=== PATIENT | male | born 1970 | race Caucasian/White ===

== ENCOUNTER 2018-01-12 18:10 | Emergency (ER) | payer BC, SELFPAY ==
[2018-01-12 18:17] VITALS: BP 137/81; PULSE 77; RESP 18; TEMP 36.9; O2SAT 97
--- NOTE | 2018-01-12 19:36 | DI.CT.S_ITS ---
PROCEDURE: CT KIDNEY URETER BLADDER (KUB) INDICATIONS: Right flank pain for 2 days, history of kidney stones TECHNIQUE: Noncontrast 5 mm thick sections acquired from the diaphragms to the symphysis. 5 mm thick coronal and sagittal reformats were then performed. For radiation dose reduction, the following was used: automated exposure control, adjustment of mA and/or kV according to patient size. COMPARISON: None. FINDINGS: Image quality: Excellent. Lung bases: Lung bases are clear. Heart size is normal. Urinary system: Both kidneys are normal in size. 5 mm nonobstructing stone is noted in the lower pole of the right kidney. No hydronephrosis or perinephric fat stranding. Both ureters appear non-dilated throughout their expected courses. Bladder wall thickness is normal; no calcified bladder stones. Other solid organs: Liver is normal in size. Gallbladder is within normal limits. Pancreas is normal in contours. Spleen is normal in size. No adrenal nodules. Peritoneum and bowel: Unenhanced bowel loops demonstrate normal wall thickness and caliber. Scattered diverticuli noted in the sigmoid colon without evidence of diverticulitis. No free fluid or air. Nodes and vessels: No retroperitoneal or mesenteric adenopathy by size criteria. Aorta and inferior vena cava are normal in caliber. Abdominal wall: No ventral hernias. Pelvis: No free pelvic fluid. No inguinal hernias or adenopathy. Bones: No suspicious bony lesions. Chronic appearing L4 compression fracture is noted which results in 50% loss of normal vertebral body height. There is narrowing of the spinal canal related to the L4 compression deformity. No acute vertebral body compression fractures. Spine degenerative disease and facet arthropathy noted. IMPRESSION: 1. 5 mm nonobstructing right renal stone. 2. No hydronephrosis. 3. The appendix is normal. 4. Sigmoid colon diverticulosis without evidence of diverticulitis. 5. Chronic appearing L4 compression fracture. Dictated by: Didi Parks MD, PhD on 01/12/2018 at 20:15 Approved by: Didi Parks MD, PhD on 01/12/2018 at 20:19
[2018-01-12 19:55] LABS: Bacteria Urine None Seen; WBC Urine None Seen (0-5/HPF)
[2018-01-12 20:03] LABS: Culture Indicated Urine Cult Not Indicated; RBC Urine 30-100/HPF (0-5/HPF)
[2018-01-12] MEDS: SODIUM CHLORIDE 0.9% 500 ML 1000 ML IV (20:11)
[2018-01-12 20:16] LABS: Add Manual Diff / Slide Review NO; Basophils Percent Auto 0.8 % (0-2); Eosinophils Percent Auto 4.4 % (2-4); Hematocrit 45.2 % (41-53); Hemoglobin 15.3 g/dL (13.5-17.5); Lymphocytes Percent Auto 34.2 % (25-40); Mean Corpuscular HGB Conc 33.8 % (30-36); Mean Corpuscular Hemoglobin 29.6 PG (26-34); Mean Corpuscular Volume 87.5 fL (80-100); Monocytes Percent Auto 11.2 % (3-14); Neutrophils Absolute Auto 4300 /uL (3000-5900); Neutrophils Percent Auto 49.4 % (50-75); Platelet Count 322 X10^3/uL (150-400); Red Blood Cell Count 5.16 X10^6/uL (4.5-5.9); Red Cell Distribution Width 13.3 % (11.6-14.8); White Blood Cell Count 8.8 X10^3/uL (4.5-11.0)
[2018-01-12 20:33] LABS: Alanine Aminotransferase 56 IU/L (21-72); Albumin 4.2 g/dL (3.5-5.0); Albumin Globulin Ratio 1.3 (1.0-2.8); Alkaline Phosphatase 57 U/L (38-126); Aspartate Aminotransferase 46 IU/L (17-59); BUN Creatinine Ratio 21.1 (6-22); Bilirubin Total 0.5 mg/dL (0.2-1.3); Blood Urea Nitrogen 19 mg/dL (9-20); Calcium 9.5 mg/dL (8.4-10.2); Carbon Dioxide 23 mmol/L (22-32); Chloride 106 mmol/L (98-107); Estimated Glomerular Filt Rate > 60.0 mL/min (>60); Globulin 3.3 g/dL (1.7-4.1); Glucose 93 mg/dL (70-100); HEMOLYSIS < 15 (0-50); Potassium 3.9 mmol/L (3.4-5.1); Sodium 143 mmol/L (137-145); Total Protein 7.5 g/dL (6.3-8.2)
[2018-01-12 20:36] VITALS: BP 128/83; PULSE 71; RESP 17; O2SAT 100
--- NOTE | 2018-01-12 21:06 | ED_ITS ---
HPI - Male Genitourinary <ARBEN Pino - Last Filed: 01/12/18 22:15> General Chief complaint: Urogenital-Male Stated complaint: KIDNEY STONES Time Seen by Provider: 01/12/18 19:20 History of Present Illness HPI Narrative: 47-year-old male with history of prior kidney stones here for complaint of right flank pain over the past several days. He states that he has had worsening pain over the past day and a half. He denies any urinary pain. He denies any fevers or chills. No nausea or vomiting. No abdominal pain. Last bowel movement was earlier today and was unremarkable. He denies any blood in his urine. Pain is localized to the right flank area no other concerns or complaints. MD Complaint: other Review of Systems <ARBEN Pino - Last Filed: 01/12/18 22:15> Constitutional Denies chills, Denies fever(s), Denies lethargy and Denies weakness Eyes Denies change in vision, Denies eye discharge, Denies irritation and Denies loss of vision ENT Ears, Nose, Mouth, and Throat: Denies change in voice, Denies neck pain and Denies sore throat Cardiovascular Denies chest pain, Denies irregular heart rhythm, Denies lightheadedness, Denies palpitations, Denies dyspnea, Denies dyspnea on exertion and Denies orthopnea Respiratory Denies cough, Denies dyspnea, Denies dyspnea on exertion and Denies wheezing Gastrointestinal Gastrointestinal: Denies abdominal pain, Denies change in bowel habits, Denies diarrhea, Denies nausea and Denies vomiting Genitourinary Reports flank pain Musculoskeletal Denies neck pain Integumentary/Breasts Denies pruritus, Denies erythema, Denies rash and Denies wounds Neurologic Denies confusion, Denies loss of vision and Denies weakness Psychiatric Denies anxiety, Denies confusion, Denies depression, Denies homicidal ideation and Denies suicidal ideation Endocrine Denies palpitations Hematologic/Lymphatic Denies easy bruising Allergic/Immunologic Denies wheezing Exam <ARBEN Pino - Last Filed: 01/12/18 22:15> Initial Vital Signs Initial Vital Signs: Vital Signs Temperature 98.5 F 01/12/18 18:17 Pulse Rate 77 01/12/18 18:17 Respiratory Rate 18 01/12/18 18:17 Blood Pressure 137/81 H 07/05/18 18:17 Pulse Oximetry 97 01/12/18 18:17 Const General: cooperative and well developed Nutritional Appearance: well nourished Orientation: alert, awake, oriented x3 and not confused [facility] Mouth: oral mucosae normal and moist mucous membranes Eyes Conjunctivae: conjunctivae normal Sclera: sclerae normal Pupils: PERRL EOM: EOM intact bilaterally Resp Effort & Inspection: normal respiratory effort, able to speak in complete sentences, no respiratory distress and no use of accessory muscles Auscultation: clear to auscultation bilaterally, no rales, no rhonchi and no wheezes Cardio Rate: regular rate Rhythm: regular rhythm Heart Sounds: no click, no gallops, no murmurs and no rubs GI Inspection: non-distended Palpation: soft, no hepatosplenomegaly, No guarding, No pulsatile mass and No tender Auscultation: normal bowel sounds Other: Right flank pain General: No CVA tenderness Other: Right flank pain Neuro General: alert, oriented x3, gait normal and no focal motor deficits Speech: speech normal <Oleg Jones MD - Last Filed: 01/13/18 05:11> Initial Vital Signs Initial Vital Signs: Vital Signs Temperature 98.5 F 01/12/18 18:17 Pulse Rate 77 01/12/18 18:17 Respiratory Rate 18 01/12/18 18:17 Blood Pressure 137/81 H 01/12/18 18:17 Pulse Oximetry 97 01/12/18 18:17 Course <ARBEN Pino - Last Filed: 01/12/18 22:15> Orders Ordered: Discontinued Medications Sodium Chloride (Normal Saline 0.9%) 500 mls @ 1,000 mls/hr IV BOLUS ONE Stop: 01/12/18 20:05 Last Infusion: 01/12/18 21:05 Dose: 0 mls/hr Admin: 01/12/18 20:11 Dose: 1,000 mls/hr Vital Signs - 8 hr 01/12/18 21:22 Pulse Rate 76 Respiratory Rate 15 Blood Pressure 140/91 H Pulse Oximetry 95 <Oleg Jones MD - Last Filed: 01/13/18 05:11> Orders Ordered: Discontinued Medications Sodium Chloride (Normal Saline 0.9%) 500 mls @ 1,000 mls/hr IV BOLUS ONE Stop: 01/12/18 20:05 Last Infusion: 01/12/18 21:05 Dose: 0 mls/hr Admin: 01/12/18 20:11 Dose: 1,000 mls/hr Vital Signs - 8 hr 01/12/18 21:22 Pulse Rate 76 Respiratory Rate 15 Blood Pressure 140/91 H Pulse Oximetry 95 MDM - Male Genitourinary <ARBEN Pino - Last Filed: 01/12/18 22:15> Lab Data Result diagrams: 01/12/18 20:00 01/12/18 20:00 Lab Results 01/12/18 01/12/18 01/12/18 Range/Units 19:25 20:00 20:00 WBC 8.8 (4.5-11.0) X10^3/uL RBC 5.16 (4.5-5.9) X10^6/uL Hgb 15.3 (13.5-17.5) g/dL Hct 45.2 (41-53) % MCV 87.5 (80-100) fL MCH 29.6 (26-34) PG MCHC 33.8 (30-36) % RDW 13.3 (11.6-14.8) % Plt Count 322 (150-400) X10^3/uL Neut % (Auto) 49.4 L (50-75) % Lymph % (Auto) 34.2 (25-40) % [place] % (Auto) 11.2 (3-14) % Eos % (Auto) 4.4 H (2-4) % Baso % (Auto) 0.8 (0-2) % Neut # (Auto) 4300 (4372-2004) /uL Sodium 143 (137-145) mmol/L Potassium 3.9 (3.4-5.1) mmol/L Chloride 106 (98-107) mmol/L Carbon Dioxide 23 (22-32) mmol/L BUN 19 (9-20) mg/dL Creatinine 0.90 (0.66-1.25) mg/dL Estimated GFR > 60.0 (>60) mL/min BUN/Creatinine Ratio 21.1 (6-22) Glucose 93 (70-100) mg/dL Calcium 9.5 (8.4-10.2) mg/dL Total Bilirubin 0.5 (0.2-1.3) mg/dL AST 46 (17-59) IU/L ALT 56 (21-72) IU/L Alkaline Phosphatase 57 (38-126) U/L Total Protein 7.5 (6.3-8.2) g/dL Albumin 4.2 (3.5-5.0) g/dL Globulin 3.3 (1.7-4.1) g/dL Albumin/Globulin Ratio 1.3 (1.0-2.8) Urine RBC 30-100/hpf H (0-5/HPF) Urine WBC None seen (0-5/HPF) Urine Bacteria None seen (None) Ur Culture Indicated? Cult not indicated Micro UA Comment Not Reportable Imaging Data kub ct: Radiologist's impression: PROCEDURE: CT KIDNEY URETER BLADDER (KUB) INDICATIONS: Right flank pain for 2 days, history of kidney stones TECHNIQUE: Noncontrast 5 mm thick sections acquired from the diaphragms to the symphysis. 5 mm thick coronal and sagittal reformats were then performed. For radiation dose reduction, the following was used: automated exposure control, adjustment of mA and/or kV according to patient size. COMPARISON: None. FINDINGS: Image quality: Excellent. Lung bases: Lung bases are clear. Heart size is normal. Urinary system: Both kidneys are normal in size. 5 mm nonobstructing stone is noted in the lower pole of the right kidney. No hydronephrosis or perinephric fat stranding. Both ureters appear non-dilated throughout their expected courses. Bladder wall thickness is normal; no calcified bladder stones. Other solid organs: Liver is normal in size. Gallbladder is within normal limits. Pancreas is normal in contours. Spleen is normal in size. No adrenal nodules. Peritoneum and bowel: Unenhanced bowel loops demonstrate normal wall thickness and caliber. Scattered diverticuli noted in the sigmoid colon without evidence of diverticulitis. No free fluid or air. Nodes and vessels: No retroperitoneal or mesenteric adenopathy by size criteria. Aorta and inferior vena cava are normal in caliber. Abdominal wall: No ventral hernias. Pelvis: No free pelvic fluid. No inguinal hernias or adenopathy. Bones: No suspicious bony lesions. Chronic appearing L4 compression fracture is noted which results in 50% loss of normal vertebral body height. There is narrowing of the spinal canal related to the L4 compression deformity. No acute vertebral body compression fractures. Spine degenerative disease and facet arthropathy noted. IMPRESSION: 1. 5 mm nonobstructing right renal stone. 2. No hydronephrosis. 3. The appendix is normal. 4. Sigmoid colon diverticulosis without evidence of diverticulitis. 5. Chronic appearing L4 compression fracture. Dictated by: Didi Parks MD, PhD on 01/12/2018 at 20:15 Approved by: Didi Parks MD, PhD on 01/12/2018 at 20:19 [facility] Narrative Medical decision making narrative: CBC and Chem panel and were unremarkable. Urinalysis was positive for red blood cells with no signs of urinary infection. KUB CT was obtained and was negative for any acute stones. No hydronephrosis. No hydroureter. There is a 5 mm stone to the right kidney that is non passing. Due to history and right flank pain and blood in urine suspicious for having already passed a kidney stone. Differential of lumbar pain due to muscle strain and idiopathic hematuria. Will have patient follow up with primary care provider next week for re-evaluation. [id number] Tylenol or Motrin as needed for any discomfort. Return emergency room for any worsening symptoms. <Oleg Jones MD - Last Filed: 01/13/18 05:11> Lab Data Lab Results 01/12/18 01/12/18 01/12/18 Range/Units 19:25 20:00 20:00 WBC 8.8 (4.5-11.0) X10^3/uL RBC 5.16 (4.5-5.9) X10^6/uL Hgb 15.3 (13.5-17.5) g/dL Hct 45.2 (41-53) % MCV 87.5 (80-100) fL MCH 29.6 (26-34) PG MCHC 33.8 (30-36) % RDW 13.3 (11.6-14.8) % Plt Count 322 (150-400) X10^3/uL Neut % (Auto) 49.4 L (50-75) % Lymph % (Auto) 34.2 (25-40) % [place] % (Auto) 11.2 (3-14) % Eos % (Auto) 4.4 H (2-4) % Baso % (Auto) 0.8 (0-2) % Neut # (Auto) 4300 (8431-3230) /uL Sodium 143 (137-145) mmol/L Potassium 3.9 (3.4-5.1) mmol/L Chloride 106 (98-107) mmol/L Carbon Dioxide 23 (22-32) mmol/L BUN 19 (9-20) mg/dL Creatinine 0.90 (0.66-1.25) mg/dL Estimated GFR > 60.0 (>60) mL/min BUN/Creatinine Ratio 21.1 (6-22) Glucose 93 (70-100) mg/dL Calcium 9.5 (8.4-10.2) mg/dL Total Bilirubin 0.5 (0.2-1.3) mg/dL AST 46 (17-59) IU/L ALT 56 (21-72) IU/L Alkaline Phosphatase 57 (38-126) U/L Total Protein 7.5 (6.3-8.2) g/dL Albumin 4.2 (3.5-5.0) g/dL Globulin 3.3 (1.7-4.1) g/dL Albumin/Globulin Ratio 1.3 (1.0-2.8) Urine RBC 30-100/hpf H (0-5/HPF) Urine WBC None seen (0-5/HPF) Urine Bacteria None seen (None) Ur Culture Indicated? Cult not indicated Micro UA Comment Not Reportable Discharge Plan Departure Patient Disposition: Home, Self-Care Clinical Impression: Acute right flank pain, Hematuria Discharge Date/Time: 01/12/18 21:24 Interventions: ED Discharge Assessment Last Done: 01/12/18 21:22 Instructions: DI for Flank Pain Activity Restrictions/Additional Instructions: Blood work today was normal. Urinalysis indicates red blood cells in the urine. CT of the abdomen was obtained and shows a 5 mm stone to the right kidney however that kidney is not actively passing at this time. Otherwise CT was unremarkable.. With pain to the right flank and history of a kidney stone along with red blood cells in her urine signs are suspicious for a kidney stone and that you may have already passed. Differential diagnosis of muscle skeletal pain into the lower back and idiopathic hematuria. Follow up with her primary care provider next week for re-evaluation. Use [id number] Tylenol or Motrin as needed for any discomfort. Plenty of fluids. Return emergency room for any worsening symptoms. Referrals: [facility] [Provider Group] <Oleg Jones MD - Last Filed: 01/13/18 05:11> Cosign ED Attending Bonilla Attestation: I was available in the ER for consultation and assistance if needed. I agree with the content of the note, and the discharge plan.
[2018-01-12 21:22] VITALS: BP 140/91; PULSE 76; RESP 15; O2SAT 95
== END 2018-01-12 21:24 | disposition home or self-care (01) ==
PROVIDERS: Emergency Provider Nurse Practitioner Family
DX: R10.9 Unspecified abdominal pain (principal); R31.9 Hematuria, unspecified
CPT/HCPCS: 36591; 74176; 80053; 81003; 81015; 85025; 96360; 99283; 99284